=== PATIENT | male | born 1995 | race African-American/Black ===

== ENCOUNTER 2019-09-02 08:12 | Emergency (ER) | payer OTHER ==
--- NOTE | 2019-09-02 09:50 | ER Document Report ---
ED General - General Chief Complaint: Back Pain Stated Complaint: BACK PAIN [facility] - Follow up as needed TRAVEL OUTSIDE OF THE [place] IN LAST 30 DAYS: No - HPI Notes: 24-year-old male with a chief complaint of mid to lower back pain. Previously healthy 24-year-old male who works as a civilian contractor at [employer] presents now complaining of mid and lower back pain after moving furniture for a friend 3 days ago. Onset as indicated. Duration persistent. Quality dull and aching. Location mid to lower back. Merrily midline. Radiation none. Precipitating factors movement and bending. Relieving factors: Minimal relief with [id number] analgesics. Severity mild to moderate. Pertinent prior history: Prior history of back problems. Generally good health with no regular medications no known allergies. - Related Data Allergies/Adverse Reactions: sulfamethoxazole [From ] Allergy (Verified 09/02/19 08:20) trimethoprim [From ] Allergy (Verified 09/02/19 08:20) Past Medical History - Social History Smoking Status: Current Every Day Smoker Chew tobacco use (# tins/day): No Frequency of alcohol use: None Drug Abuse: None Family History: Reviewed & Not Pertinent Patient has suicidal ideation: No Patient has homicidal ideation: No Review of Systems - Review of Systems Notes: Constitutional: Negative for fever. HENT: Negative for sore throat. Eyes: Negative for visual changes. Cardiovascular: Negative for chest pain. Respiratory: Negative for shortness of breath. Gastrointestinal: Negative for abdominal pain, vomiting or diarrhea. Genitourinary: Negative for dysuria. Musculoskeletal: As per HPI. Skin: Negative for rash. Neurological: Negative for headaches, weakness or numbness. 10 point ROS negative except as marked above and in HPI. Physical Exam - Vital signs Vitals: Temp Pulse Resp BP Pulse Ox 98.9 F 74 16 140/70 H 97 09/02/19 08:18 09/02/19 08:18 09/02/19 08:18 09/02/19 08:18 09/02/19 08:18 Notes: GENERAL: Well-developed well-nourished appearing in no acute distress. SKIN: Good turgor no rashes. HEAD: Normocephalic atraumatic. EYES: PERRLA. Conjunctivae and sclerae clear. EARS: CANALS AND TMS CLEAR. NOSE: CLEAR. MOUTH: Moist mucosa. Good dentition. No stridor or edema. No drooling. NECK: Supple. No masses or thyromegaly. No adenopathy. Carotids 2+ without bruits. No JVD. BACK: Symmetrical with mild muscular spasm mid to lower back bilaterally. No bony tenderness. No crepitus or step-off. Pain is reproduced with active and passive motion. Minimal restriction of flexion. CHEST: Respirations unlabored. Breath sounds clear and symmetrical. HEART: Regular rhythm. No murmur gallop or rub. ABDOMEN: Soft nontender without masses, organomegaly or rebound. Bowel sounds normally active. No bruits. GENITALIA: Deferred. EXTREMITIES: No edema. No calf tenderness. Cap refill less than 1.5 seconds. Dorsalis pedis and posterior tibial pulses 3+ and symmetrical. NEUROLOGICAL: GCS 15. Alert and oriented x3. Normal gait. Fluent speech. Cranial nerves II through XII intact. Sensorimotor and cerebellar normal. Normal tone. Course - Re-evaluation Re-evalutation: 09/02/19 09:52 Patient appears to have simple muscular strain of the back and is stable for outpatient management. - Vital Signs Vital signs: Temp Pulse Resp BP Pulse Ox 98.9 F 74 16 140/70 H 97 09/02/19 08:18 09/02/19 08:18 09/02/19 08:18 09/02/19 08:18 09/02/19 08:18 Discharge - Discharge Clinical Impression: Acute lumbar myofascial strain Condition: Stable Disposition: HOME, SELF-CARE Instructions: Ice Packs ([facility]), Muscle Strain ([facility]), Low Back Pain ([facility]) Additional Instructions: Follow-up with referral physician if no better in 3 to 4 days. Prescriptions: Naproxen 500 mg PO BID PRN 7 Days #14 tablet PRN Reason: Tizanidine HCl 2 mg PO TID 7 Days #21 tablet Forms: Return to Work Referrals: [facility] [[facility]] - Follow up as needed
[2019-09-02 10:10] VITALS: BP 140/65
== END 2019-09-02 10:06 | disposition home or self-care (01) ==
LOC: ER 08:12
DX: S39.012A Strain of muscle, fascia and tendon of lower back, initial encounter (principal); X58.XXXA Exposure to other specified factors, initial encounter; Y93.E6 Activity, residential relocation; F17.200 Nicotine dependence, unspecified, uncomplicated; Z88.3 Allergy status to other anti-infective agents
CPT/HCPCS: 99283

== ENCOUNTER 2020-08-03 05:35 | Emergency (ER) | payer OTHER ==
[2020-08-03] MEDS ORDERED: ONDANSETRON 4 MG TAB.RAPDIS PO ONE (06:18)
[2020-08-03] MEDS ORDERED: ACETAMINOPHEN 325 MG TABLET PO ONE (06:19)
[2020-08-03 09:34] VITALS: BP 136/78
[2020-08-03 11:16] LABS: A TYPE INFLUENZA AG NEGATIVE (NEGATIVE); B INFLUENZA AG NEGATIVE (NEGATIVE)
--- NOTE | 2020-08-04 11:18 | ER Document Report ---
Entered by AKOSUA PEARSON SCRIBE 08/03/20 0976 Acting as scribe for:LIOR SAEED MD ED General - General TRAVEL OUTSIDE OF THE [place] IN LAST 30 DAYS: No - General Chief Complaint: Flu Symptoms Stated Complaint: BACK PAIN Time Seen by Provider: 08/03/20 09:22 [facility]: [facility] [[facility]] - Follow up as needed Notes: CHIEF COMPLAINT: Chills and body ache with cough and nausea 1 day HPI: 25-year-old male presenting with nausea and chills that began yesterday. Slight cough that has improved, generalized myalgia and body ache. No headache or neck pain. No sore throat. No chest pain shortness of breath at this time. Denies abdominal pain but complains of continued nausea. ROS: See HPI - all other systems were reviewed and are otherwise negative Constitutional: no fever Eyes: no drainage, no blurred vision ENT: no runny nose, no sore throat Cardiovascular: no chest pain Resp: no SOB, + cough GI: no vomiting, no diarrhea, no abdominal pain, positive nausea : no dysuria Integumentary: no rash Allergy: no hives Musculoskeletal: no extremity pain or swelling Neurological: no numbness/tingling, no weakness MEDICATIONS: I agree with the patient medications as charted by the RN. ALLERGIES: I agree with the allergies as charted by the RN. PAST MEDICAL HISTORY/PAST SURGICAL HISTORY: Reviewed and agree as charted by RN. SOCIAL HISTORY: Reviewed and agree as charted by RN. FAMILY HISTORY: No significant familial comorbid conditions directly related to patient complaint EXAM: Reviewed vital signs as charted by RN. CONSTITUTIONAL: Alert and oriented and responds appropriately to questions. Well-appearing; well-nourished HEAD: Normocephalic; atraumatic EYES: PERRL; Conjunctivae clear, sclerae non-icteric ENT: normal nose; no rhinorrhea; moist mucous membranes; pharynx without lesions noted, no uvula edema or deviation, no tonsillar hypertrophy, phonation normal NECK: Supple without meningismus; non-tender; no cervical lymphadenopathy, no masses CARD: RRR; no murmurs, no clicks, no rubs, no gallops; symmetric distal pulses RESP: Normal chest excursion without splinting or tachypnea; breath sounds clear and equal bilaterally; no wheezes, no rhonchi, no rales, pulse oximetry 98% on room air not hypoxic ABD/GI: Normal bowel sounds; non-distended; soft, non-tender, no rebound, no guarding; no palpable organomegaly or masses. BACK: The back appears normal and is non-tender to palpation, there is no CVA tenderness EXT: Normal ROM in all joints; non-tender to palpation; no cyanosis, no effusions, no edema SKIN: Normal color for age and race; warm; dry; good turgor; no acute lesions noted NEURO: Moves all extremities equally; Motor and sensory function intact PSYCH: The patient's mood and manner are appropriate. Grooming and personal hygiene are appropriate. MDM: 25-year-old male presenting with flulike symptoms for 1 day. Has no abdominal pain on exam. Has no chest pain. No indication for imaging at this time. Will obtain influenza and COVID studies. If influenza negative will quarantine at home pending results of COVID testing ([facility]) - Related Data Allergies/Adverse Reactions: sulfamethoxazole [From [facility]] Allergy (Verified 09/02/19 08:20) trimethoprim [From [facility]] Allergy (Verified 09/02/19 08:20) Past Medical History - Social History Smoking Status: Current Every Day Smoker Family History: Reviewed & Not Pertinent Physical Exam - Vital signs Vitals: Temp Pulse Resp BP Pulse Ox 99.9 F 109 H 16 141/67 H 95 08/03/20 06:28 08/03/20 06:28 08/03/20 06:28 08/03/20 06:28 08/03/20 06:28 Course - Re-evaluation Re-evalutation: 08/03/20 11:27 Influenza test is negative. Patient will self quarantine at home pending COVID results ([facility]) - Vital Signs Vital signs: Temp Pulse Resp BP Pulse Ox 99.2 F 93 20 136/78 H 95 08/03/20 09:30 08/03/20 09:30 08/03/20 09:30 08/03/20 09:30 08/03/20 09:30 Discharge - Discharge Clinical Impression: Person under investigation for COVID-19, Nausea, Myalgia Condition: Stable Disposition: HOME, SELF-CARE Instructions: COVID-19 Guidance for Persons Under Investigation Additional Instructions: Take Zofran for any recurrent nausea. Hydrate well at home. Motrin Tylenol for body ache. Your influenza test today was negative. You are considered a person under investigation for COVID-19 at this time. Self quarantine at home pending her test results which may take 2 to 5 days. You should hear from the hospital about your test results. Follow-up with your primary care provider for reevaluation of symptoms if they persist. If you have any significant worsening of your symptoms or onset of abdominal pain or high fevers return for reevaluation Prescriptions: Ondansetron [Zofran Odt 4 mg Tablet] 1 - 2 tab PO Q4H PRN #15 tab.rapdis PRN Reason: For Nausea/Vomiting [facility]errals: [facility] [[facility]] - Follow up as needed I personally performed the services described in the documentation, reviewed and edited the documentation which was dictated to the scribe in my presence, and it accurately records my words and actions.
== END 2020-08-03 11:48 | disposition home or self-care (01) ==
LOC: ER 05:35
DX: M79.10 Myalgia, unspecified site (principal); R11.0 Nausea; M54.9 Dorsalgia, unspecified; Z20.828 Contact with and (suspected) exposure to other viral communicable diseases; F17.200 Nicotine dependence, unspecified, uncomplicated
CPT/HCPCS: 99284; 87635; 87804; S0119; C9803

== ENCOUNTER 2020-08-05 10:33 | Emergency (ER) | payer OTHER ==
[2020-08-05 11:52] LABS: ABSOLUTE LYMPHOCYTES (AUTO) 0.5 10^3/uL (0.5-4.7); ABSOLUTE MONOCYTES (AUTO) 0.5 10^3/uL (0.1-1.4); ABSOLUTE NEUT (AUTO) 3.3 10^3/uL (1.7-8.2); BASOPHILS % (AUTO) 0.4 % (0-2); EOSINOPHILS % (AUTO) 0.1 % (0-6); HEMATOCRIT 44.6 % (37.9-51.0); LYMPHOCYTES % (AUTO) 12.4 % (13-45); MEAN CORPUSCULAR HEMOGLOBIN 30.5 pg (27.0-33.4); MEAN CORPUSCULAR HGB CONC 35.9 g/dL (32.0-36.0); MEAN CORPUSCULAR VOLUME 85 fl (80-97); MONOCYTES % (AUTO) 11.9 % (3-13); PLATELET COUNT 106 10^3/uL (150-450); RED BLOOD COUNT 5.24 10^6/uL (4.35-5.55); RED CELL DISTRIBUTION WIDTH 12.8 % (11.5-14.0); SEGMENTED NEUTROPHILS % (AUTO) 75.2 % (42-78); TOTAL CELLS COUNTED % (AUTO) 100 %; WHITE BLOOD COUNT 4.4 10^3/uL (4.0-10.5)
[2020-08-05 12:20] LABS: APPEARANCE,URINE CLEAR; BILIRUBIN,URINE NEGATIVE (NEGATIVE); COLOR,URINE AMBER; GLUCOSE, URINE NEGATIVE (NEGATIVE); KETONES,URINE 20 mg/dL (NEGATIVE); LEUKOCYTE ESTERASE,URINE NEGATIVE (NEGATIVE); NITRITE,URINE NEGATIVE (NEGATIVE); PROTEIN,URINE 100 mg/dL (NEGATIVE); URINE SPECIFIC GRAVITY 1.018
[2020-08-05 12:23] LABS: ALBUMIN 4.9 g/dL (3.5-5.0); ALKALINE PHOSPHATASE 106 U/L (38-126); ANION GAP 13 (5-19); ASPARTATE AMINO TRANSFERASE 64 U/L (17-59); BILIRUBIN,DIRECT 0.5 mg/dL (0.0-0.4); BILIRUBIN,TOTAL 1.8 mg/dL (0.2-1.3); BLOOD UREA NITROGEN 14 mg/dL (7-20); CALCIUM 9.4 mg/dL (8.4-10.2); CARBON DIOXIDE 27 mmol/L (22-30); CHLORIDE 94 mmol/L (98-107); GLUCOSE 119 mg/dL (75-110); POTASSIUM 3.8 mmol/L (3.6-5.0); TOTAL PROTEIN 8.2 g/dL (6.3-8.2)
[2020-08-05] MEDS ORDERED: NORMAL SALINE 1000 ML 1,000 ML IV ONE (13:12)
[2020-08-05] MEDS ORDERED: ONDANSETRON HCL INJ/PF 4 MG/2 ML SDV IV ONE (13:12)
--- NOTE | 2020-08-05 13:13 | ER Document Report ---
ED Medical Screen (RME) - General Chief Complaint: Nausea/Vomiting/Diarrhea Stated Complaint: NECK PAIN, NAUSEA VOMITING Time Seen by Provider: 08/05/20 13:02 Primary Care Provider: [facility] [Primary Care Provider] - Follow up as needed Information source: Patient Notes: Patient presents complaining of nausea vomiting diarrhea for the past 4 days. Patient developed left upper quadrant tenderness today. Patient denies any fever. Patient reports some neck tenderness. Patient reports vomiting over 10 episodes today and having diarrhea over 10 episodes today. I have greeted and performed a rapid initial assessment of this patient. A comprehensive ED assessment and evaluation of the patient, analysis of test results and completion of the medical decision making process will be conducted by additional ED providers. TRAVEL OUTSIDE OF THE [place] IN LAST 30 DAYS: No - Related Data Allergies/Adverse Reactions: sulfamethoxazole [From [facility]] Allergy (Verified 09/02/19 08:20) trimethoprim [From [facility]] Allergy (Verified 09/02/19 08:20) Past Medical History - Social History Frequency of alcohol use: None Drug Abuse: None Physical Exam - Vital signs Vitals: Temp Pulse Resp BP Pulse Ox 99.1 F 101 H 22 H 130/97 H 100 08/05/20 11:16 08/05/20 11:16 08/05/20 11:16 08/05/20 11:16 08/05/20 11:16 - Abdominal Tenderness: Tender - Left upper quadrant Course - Vital Signs Vital signs: Temp Pulse Resp BP Pulse Ox 99.1 F 101 H 22 H 130/97 H 100 08/05/20 11:16 08/05/20 11:16 08/05/20 11:16 08/05/20 11:16 08/05/20 11:16 - Laboratory Result Diagrams: 08/05/20 11:34 08/05/20 11:34 Laboratory results interpreted by me: 08/05/20 08/05/20 08/05/20 11:34 11:34 12:00 Plt Count 106 L Lymph % (Auto) 12.4 L Sodium 134.3 L Chloride 94 L Glucose 119 H Total Bilirubin 1.8 H Direct Bilirubin 0.5 H AST 64 H ALT 58 H Urine Protein 100 H Urine Ketones 20 H Urine Urobilinogen 4.0 H Doctor's Discharge - Discharge [facility]errals: [facility] [Primary Care [facility]] - Follow up as needed
--- NOTE | 2020-08-05 14:37 | ER Document Report ---
ED General - General Chief Complaint: Nausea/Vomiting/Diarrhea Stated Complaint: NECK PAIN, NAUSEA VOMITING Time Seen by Provider: 08/05/20 13:02 Primary Care Provider: [facility] [Primary Care Provider] - Follow up as needed Notes: Patient is a 25-year-old male with no reported past medical history presents the emergency department the chief complaint of nausea vomiting and diarrhea for the past 3 days. He was seen here 2 days ago states he had a negative COVID 19 and influenza test. Was sent home with nausea medications. Patient states he could not afford the nausea medicine so he got something [id number] from [facility]. He states it is not improving. He admits to more than 10 episodes of vomiting and diarrhea per day. States he lives at home with his , child and a roommate and no one else is sick. He denies any recent travel. No known sick contacts. Denies any new medicines, drugs or exposures to any possible contaminated food or water sources. No fevers. Admits to some intermittent left upper quadrant cramping. Denies any chest pain or shortness of breath. No lower abdominal pain. No testicular pain or swelling. No dysuria. No constipation. No headaches. TRAVEL OUTSIDE OF THE [place] IN LAST 30 DAYS: No - Related Data Allergies/Adverse Reactions: sulfamethoxazole [From ] Allergy (Verified 09/02/19 08:20) trimethoprim [From [facility]] Allergy (Verified 09/02/19 08:20) Past Medical History - General Information source: Patient - Social History Smoking Status: Current Every Day Smoker Frequency of alcohol use: None Drug Abuse: None Family History: Reviewed & Not Pertinent Review of Systems - Review of Systems Constitutional: denies: Fever EENT: denies: Eye discharge Cardiovascular: denies: Chest pain Respiratory: denies: Cough Gastrointestinal: denies: Abdominal pain Genitourinary: denies: Burning Male Genitourinary: denies: Testicular pain Musculoskeletal: denies: Back pain Skin: denies: Change in color Hematologic/Lymphatic: denies: Easy bruising Neurological/Psychological: denies: Headaches Physical Exam - Vital signs Vitals: Temp Pulse Resp BP Pulse Ox 99.1 F 101 H 22 H 130/97 H 100 08/05/20 11:16 08/05/20 11:16 08/05/20 11:16 08/05/20 11:16 08/05/20 11:16 - General General appearance: Appears well, Alert In distress: None Notes: Nontoxic in appearance. Watching TV in no acute distress - HEENT Head: Normocephalic, Atraumatic Eyes: Normal Conjunctiva: Normal Pupils: PERRL Mouth/Lips: Normal Mucous membranes: Moist Neck: Normal, Supple - Respiratory Respiratory status: No respiratory distress Chest status: Nontender Breath sounds: Normal Chest palpation: Normal - Cardiovascular Rhythm: Regular Heart sounds: Normal auscultation Murmur: No - Abdominal Inspection: Normal Distension: No distension Bowel sounds: Normal Tenderness: Nontender Organomegaly: No organomegaly - Neurological Neuro grossly intact: Yes Cognition: Normal Orientation: AAOx4 - Psychological Associated symptoms: Normal affect, Normal mood - Skin Skin Temperature: Warm Skin Moisture: Dry Skin Color: Normal Course - Re-evaluation Re-evalutation: 08/05/20 15:16 Reevaluation at this time, 1516, patient is resting comfortably in the room. He is in no acute distress. He is talking on cell phone watching TV. He has had no witnessed episodes of vomiting or any frequent diarrhea here during his stay. He has a benign abdominal exam on repeat. His work-up is largely unremarkable. He was previously negative for COVID-19 and influenza. He is got no known exposures to contaminated food or water sources. He has a urine drug screen positive for marijuana. He reports after questioning the last time he used was 2 to 3 weeks ago. We discussed hyperemesis cannabis though the timing of this illness and the reported use of cannabis last seems unrelated. Suspect possible gastroenteritis. Will prescribe Phenergan for control of nausea and vomiting. Encouraged rest and adequate hydration to replace fluid loss through diarrhea. Discussed with him the importance of close outpatient follow-up with his primary doctor over the next 2 to 3 days and advised that he return here or any ER immediately with any new, persistent or worsening symptoms. He verbalized understood and agreed. - Vital Signs Vital signs: Temp Pulse Resp BP Pulse Ox 99.1 F 101 H 22 H 130/97 H 100 08/05/20 11:16 08/05/20 11:16 08/05/20 11:16 08/05/20 11:16 08/05/20 11:16 - Laboratory Result Diagrams: 08/05/20 11:34 08/05/20 11:34 Laboratory results interpreted by me: 08/05/20 08/05/20 08/05/20 11:34 11:34 12:00 Plt Count 106 L Lymph % (Auto) 12.4 L Sodium 134.3 L Chloride 94 L Glucose 119 H Total Bilirubin 1.8 H Direct Bilirubin 0.5 H AST 64 H ALT 58 H Urine Protein 100 H Urine Ketones 20 H Urine Urobilinogen 4.0 H Discharge - Discharge Clinical Impression: Gastroenteritis Condition: Stable Disposition: HOME, SELF-CARE Instructions: Gastroenteritis (adult) ([facility]) Additional Instructions: Follow-up with your regular doctor in 2 to 3 days for reevaluation. Return here or any ER immediately with any new, persistent or worsening symptoms. Prescriptions: Promethazine HCl [Phenergan 25 mg Tablet] 25 mg PO Q6H PRN #20 tablet PRN Reason: [facility]errals: [facility] [[facility]] - Follow up as needed
[2020-08-05 15:01] LABS: URINE AMPHETAMINES SCREEN NEGATIVE; URINE BARBITURATES SCREEN NEGATIVE; URINE BENZODIAZEPINES SCREEN NEGATIVE; URINE COCAINE SCREEN NEGATIVE; URINE METHADONE SCREEN NEGATIVE; URINE PHENCYCLIDINE SCREEN NEGATIVE
[2020-08-05 15:08] LABS: URINE MARIJUANA (THC) SCREEN UNCONFIRMED POSITIVE
[2020-08-05 15:33] VITALS: BP 136/74
== END 2020-08-05 15:33 | disposition home or self-care (01) ==
LOC: ER 10:33
DX: K52.9 Noninfective gastroenteritis and colitis, unspecified (principal); R11.2 Nausea with vomiting, unspecified; F17.200 Nicotine dependence, unspecified, uncomplicated
CPT/HCPCS: 99284; 96361; 96374; 36415; 83690; 85025; 80053; 81001; 80307; J2405; J7030